=== PATIENT | male | born 1945 | race Hispanic/Latino ===

== ENCOUNTER 2017-01-17 07:22 | Day surgery (SDC) | payer MEDICARE, OTHER ==
[2017-01-13 10:25] VITALS: BMI 25.1
[2017-01-17] MEDS ORDERED: Lidocaine 2% Inj (20ml) ONE (09:57)
[2017-01-17] MEDS ORDERED: Heparin 0 ML IV ONE (09:57)
--- NOTE | 2017-01-17 11:17 | CARD ---
APPROVED REPORT HISTORY The Patient is a 71 year-old male with a history of Hx of bradycardia and near syncope, HTN PROCEDURES Insertion of Loop recorder Reveal LINQ INDICATIONS Bradicardia Syncope IMPLANTED DEVICES Medtronic, Reveal LINQ OPERATIVE NOTE The patient was brought to the Cardiac Catheterization Laboratory in a fasting state and was prepped and draped in a sterile manner. 2% lidocaine was given 1.5 cm lateral to mid stenal line at 4 th ICS, A small incision made with BP # 11 and asmall poacket created and then Linq was injected and puncture site was closed with Drma ricardo COMPLICATIONS The patient tolerated the procedure well and there were no complications associated with the procedure. CONCLUSION Successful Implantation of Loop recorder, Medtronic reveal LINQ, arrangement has been made for wireless transtelephonic continous recording and also pt was give education for event recordings. Cc; Dr. torres.
[2017-01-17 11:19] VITALS: BP 148/87; PULSE 61; RESP 20; TEMP 98.3; O2SAT 97
== END 2017-01-17 12:00 | disposition home or self-care (01) ==
LOC: SDS 07:22
PROVIDERS: ATTEND Internal Medicine Cardiovascular Disease
DX: R00.1 Bradycardia, unspecified (principal); I10 Essential (primary) hypertension; R55 Syncope and collapse
CPT/HCPCS: 33282; C1764

== ENCOUNTER 2017-12-23 12:06 | Observation (INO) | payer MEDICARE, OTHER ==
[2017-12-23 12:14] VITALS: BMI 25.5
[2017-12-23 13:23] LABS: BASO # 0.02 K/mm3 (0.0-2.0); BASO % 0.3 % (0.0-3.0); EOS # 0.1 (0.0-0.7); EOS % 1.6 % (1.5-5.0); GRAN # 4.45 (1.4-6.5); GRAN % 73.2 % (50.0-68.0); HEMOGLOBIN 14.9 g/dL (14.0-18.0); MEAN CELL VOLUME 89.9 fl (80.0-105.0); MEAN CORPUSCULAR HEMOGLOBIN 31.2 pg (25.0-35.0); MEAN CORPUSCULAR HGB CONC 34.7 g/dl (31.0-37.0); MEAN PLATELET VOLUME 10.5 fl (7.0-11.0); MONO # 0.5 (0.1-0.6); MONO % 8.9 % (1.0-6.0); RBC 4.77 10^6/uL (3.5-6.1); RED CELL DISTRIBUTION WIDTH 13.5 % (11.5-14.5); WHITE BLOOD COUNT 6.1 10^3/ul (4.5-11.0)
--- NOTE | 2017-12-23 13:32 | ED PDOC ---
Arrival/HPI - General Historian: Patient - History of Present Illness Time/Duration: > month Symptom Onset: Gradual Symptom Course: Unchanged Context: Sitting - General Chief Complaint: Medical Clearance Time Seen by Provider: 12/23/17 12:08 - History of Present Illness Narrative History of Present Illness (Text): 12/23/17 13:29 Patient is a 72 yo M with PMH of CHF, HTN, alzheimers presents to ED due to long period of asystole found on loop recorder. Patient states he has been on a loop recorder due to episodes of near syncope, diaphoresis, and bradycardia. It was found that on November 29 patient had an extended period of asystole on the loop recorder. Patient was instructed by his chief of police to proceed immediately to the ED for admission and pacemaker placement today. Patient states that he is symptomatic about once a month. Currently, patient denies CP, palpitations, diaphoresis, SOB, n/v/d, abdominal pain, fever, chills, BROOKS, or dizziness. PMD: Lilo Cardio: Leland Santana) Past Medical History - Provider Review Nursing Documentation Reviewed: Yes - Infectious Disease Hx of Infectious Diseases: None - Tetanus Immunization Tetanus Immunization: Unknown - Cardiac Hx Hypertension: Yes Hx Pacemaker: No Other/Comment: + loop recorder. bradycardia - Pulmonary Hx Respiratory Disorders: No - Neurological Hx Alzheimer's Disease: Yes Hx Paralysis: No - HEENT Hx HEENT Disorder: No - Renal Hx Renal Disorder: No - Endocrine/Metabolic Hx Endocrine Disorders: No - Hematological/Oncological Hx Blood Transfusions: No Hx Blood Transfusion Reaction: No - Integumentary Hx Dermatological Disorder: No - Musculoskeletal/Rheumatological Hx Musculoskeletal Disorders: No - Gastrointestinal Hx Gastritis: Yes Hx Gastroesophageal Reflux: Yes - Genitourinary/Gynecological Hx Genitourinary Disorders: No - Psychiatric Hx Emotional Abuse: No Hx Physical Abuse: No Hx Substance Use: No - Surgical History Hx Cardiac Catheterization: Yes - Anesthesia Hx Anesthesia: Yes Hx Anesthesia Reactions: No Hx Malignant Hyperthermia: No - Suicidal Assessment Feels Threatened In Home Enviroment: No Family/Social History - Physician Review Nursing Documentation Reviewed: Yes Family/Social History: No Known Family HX Smoking Status: Never Smoked Hx Alcohol Use: No Hx Substance Use: No Hx Substance Use Treatment: No Allergies/Home Meds Allergies/Adverse Reactions: Allergies TAPE Adverse Reaction (Mild, Uncoded 10/20/16 09:41) ITCHING Home Medications: Home Meds Medication Instructions Recorded Confirmed Valsartan [Diovan] 120 mg PO DAILY 10/14/16 01/17/17 clonazePAM [Klonopin] 1 mg PO HS PRN 10/20/16 01/17/17 Omeprazole Magnesium [Prilosec Otc] 40 mg PO DAILY 01/13/17 01/17/17 Aspirin [Aspirin EC] 1 tab PO DAILY 12/23/17 12/23/17 Ranitidine HCl [Zantac] 1 tab PO DAILY 12/23/17 12/23/17 Zaleplon [Sonata] 1 tab PO HS 12/23/17 12/23/17 Review of Systems - Physician Review All systems were reviewed & negative as marked: Yes (12 point ROS reviewed and is negative other than what is stated in HPI.) - Review of Systems Constitutional: Normal Eyes: Normal Physical Exam Vital Signs Reviewed: Yes Temperature: Afebrile Blood Pressure: Normal Pulse: Regular Respiratory Rate: Normal Appearance: Positive for: Non-Toxic Pain Distress: None Mental Status: Positive for: Alert and Oriented X 3 - Systems Exam Head: Present: Atraumatic, Normocephalic Pupils: Present: PERRL Extroacular Muscles: Present: EOMI Conjunctiva: Present: Normal Mouth: Present: Moist Mucous Membranes Neck: Present: Normal Range of Motion Respiratory/Chest: Present: Clear to Auscultation, Good Air Exchange. No: Respiratory Distress, Accessory Muscle Use Cardiovascular: Present: Regular Rate and Rhythm Abdomen: No: Tenderness, Distention, Peritoneal Signs Back: Present: Normal Inspection Upper Extremity: Present: Normal Inspection. No: Cyanosis, Edema Lower Extremity: Present: Normal Inspection. No: Edema Neurological: Present: GCS=15, CN II-XII Intact, Speech Normal Skin: Present: Warm, Dry, Normal Color. No: Rashes Psychiatric: Present: Alert, Oriented x 3, Normal Insight, Normal Concentration Vital Signs Temp Pulse Resp BP Pulse Ox 12/23/17 14:31 98.1 F 68 18 146/78 98 12/23/17 12:14 98.1 F 64 18 162/95 H 97 Medical Decision Making ED Course and Treatment: 12/23/17 13:33 72 yo M presents to ED due to asystole found on loop recorder. Plan: - CBC, CMP - Coags - Cardiac ISO - EKG - CXR - Type and screen - NPO Patient was discussed with Dr. Malloy, who will take patient to OR for pacemaker placement this afternoon. Patient was discussed with Dr. Nayg, who agrees with plan and accepts patient under her service. Patient admitted to telemetry. 12/23/17 14:19 CXR showed no active disease. EKG reviewed, showed rate of 63, NSR, LAD, RBBB. (Leland Kingston) - Lab Interpretations Lab Results: 12/23/17 13:18 12/23/17 13:18 Lab Results 12/23/17 13:18: Sodium 143, Potassium 4.3, Chloride 108 H, Carbon Dioxide 26, Anion Gap 14, BUN 20, Creatinine 1.1, Est GFR ( Amer) > 60, Est GFR (Non- Af Amer) > 60, Random Glucose 105, Calcium 8.9, Magnesium 2.2, Total Bilirubin 1.4 H, AST 18, ALT 20, Alkaline Phosphatase 67, Lactate Dehydrogenase 414, Total Creatine Kinase 154, Troponin I < 0.01, Total Protein 6.6, Albumin 3.8, Globulin 2.8, Albumin/Globulin Ratio 1.4 12/23/17 13:18: PT 12.2, INR 1.07, APTT 28.7 12/23/17 13:18: WBC 6.1, RBC 4.77, Hgb 14.9, Hct 42.9, MCV 89.9, MCH 31.2, MCHC 34.7, RDW 13.5, Plt Count 166, MPV 10.5, Gran % 73.2 H, Lymph % (Auto) 16.0 L, Lumpkin % (Auto) 8.9 H, Eos % (Auto) 1.6, Baso % (Auto) 0.3, Gran # 4.45, Lymph # ( Auto) 1.0 L, Lumpkin # (Auto) 0.5, Eos # (Auto) 0.1, Baso # (Auto) 0.02 - RAD Interpretation Radiology Orders: 12/23/17 12:49 CHEST PORTABLE [RAD] Stat Disposition/Present on Arrival - Present on Arrival Any Indicators Present on Arrival: No History of DVT/PE: No History of Uncontrolled Diabetes: No Urinary Catheter: No History of Decub. Ulcer: No History Surgical Site Infection Following: None - Disposition Have Diagnosis and Disposition been Completed?: Yes Disposition Time: 14:37 Patient Plan: Admission, Telemetry - Disposition Diagnosis: Cardiomyopathy Condition: STABLE Referrals: Vianney Nagy MD [Staff Provider] -
--- NOTE | 2017-12-23 13:34 | RAD ---
HISTORY: medical clearance COMPARISON: 07/03/2015 FINDINGS: LUNGS: No active pulmonary disease. PLEURA: No significant pleural effusion identified, no pneumothorax apparent. CARDIOVASCULAR: Normal. OSSEOUS STRUCTURES: No significant abnormalities. VISUALIZED UPPER ABDOMEN: Normal. OTHER FINDINGS: None. IMPRESSION: No active disease.
[2017-12-23 13:38] LABS: INR 1.07 (0.93-1.08); PARTIAL THROMBOPLASTIN TIME 28.7 Seconds (25.1-36.5); PROTHROMBIN TIME 12.2 SECONDS (9.4-12.5)
[2017-12-23 13:50] LABS: ALB/GLOB RATIO 1.4 (1.1-1.8); ALBUMIN 3.8 g/dL (3.0-4.8); ALT/SGPT 20 U/L (7-56); AST/SGOT 18 U/L (17-59); BLOOD UREA NITROGEN 20 mg/dL (7-21); CALCIUM 8.9 mg/dL (8.4-10.5); GFR AFRICAN-AMERICAN > 60; GFR NON-AFRICAN AMERICAN > 60
[2017-12-23 14:02] LABS: TROPONIN I < 0.01 ng/mL
--- NOTE | 2017-12-23 15:03 | CARD ---
APPROVED REPORT EKG Measurement Heart [id number] NE 182P29 [id number] <Conclusion> Normal sinus rhythm Left axis deviation Right bundle branch block Abnormal ECG
[2017-12-23] MEDS ORDERED: Midazolam 2 MG/2 ML VIAL ONE ×2 (15:26→17:07)
[2017-12-23] MEDS ORDERED: Lidocaine 2% Inj (20ml) ONE ×2 (15:26→15:46)
[2017-12-23] MEDS ORDERED: Iodixanol 320 MG/ML 100 ML BOTTLE IV ONE (15:27)
[2017-12-23] MEDS ORDERED: Sodium Chloride 0.9% 1,000 ML IV SCH (17:30)
--- NOTE | 2017-12-23 18:02 | CARD ---
APPROVED REPORT HISTORY The Patient is a 72 year-old male with a history of Syncope, HTN, S/p Multiple caths Non Obstructive CAD, and s/p Loop recoredr implantation. Today Loop recorder interogation revealed 16 seconds pause PROCEDURES Insertion Dual Chamber Pacemaker INDICATIONS SSS Sinus arrest with 16 secods documented pause in loop recorder Synncope CONSCIOUS SEDATION AGENTS Versed Fentanyl IMPLANTED DEVICES Pulse Generator Medtronic Adilene XT DR JORGENSEN SURESCAN. Ventricular Lead 5076-58...[id number]... MRI SAFE ... Medtronic Atrial lead 5076-52...[id number]....MRI Safe.... Medtronic OPERATIVE NOTE The patient was brought to the Cardiac Catheterization Laboratory in a fasting state and was prepped and draped in a sterile manner. The left subclavian region was infiltrated with 2% Lidocaine, subcutaneous anesthesia. A transverse incision was made in the left upper chest cavity. The subcutaneous pocket was formed via blunt dissection. Percutaneous venous access was achieved and an introducer sheath was inserted into the Lt Subclavian vein. Through the introducer sheaths, the atrial and ventricular lead wires were positioned in the right atrial apppendage and right ventricular apex respectively, utilizing fluorscopic guidance. The atrial and ventricular leads were advanced over the wires under fluoroscopic guidance and positioned in the right atria and right ventricle respectively. Capturing and sensing thresholds were verified. THE ATRIAL ELECTRODE PARAMETERS P WAVE 6.6 THRESHOLD0.4 RESISTANCE 539 THE VENTRICULAR ELECTRODE PARAMETERS R WAVE 4.5 THRESHOLD0.4 RESISTANCE 1310 The atrial and ventricular leads were then secured using silk2.0 sutures. The subcutaneous pocket was irrigated with Betadine.The atrial and ventricular leads were attached to the appropriate receptacles on the pulse generator and set screws firmly tightened to insure adequate contact and stability. The leads and pulse generator were placed into the subcutaneous pocket. Sharp and sponge counts were confirmed to be correct. At this time the pocket was closed subcutaneously with a 2.0 Vicryl and the skin was closed with a 4.0 Vicryl .The operative site was dressed in sterile fashion. The patient tolerated the procedure well and was transferred tot floor in stable condition. COMPLICATIONS The patient tolerated the procedure well and there were no complications associated with the procedure. CONCLUSION Successful implantation of DDDR , Pace maker MRI Safe ( pt can have MRI). CC; dr. Nagy
--- NOTE | 2017-12-23 18:04 | CPOSTOP ---
DATE: 12/23/2017 CARDIAC MISDRAW HAND PROCEDURE POSTPROCEDURE NOTE DICTATING PHYSICIAN: Celeste Malloy MD. RETAIL SERVICE TECHNICIAN: HOWARD Jaeger. TYPE OF ANESTHESIA: Moderate conscious sedation. Total 3 mg of Versed, 100 of fentanyl given periodically, started at 1 mg of Versed and 50 of fentanyl. PRE-PROCEDURE DIAGNOSES: Sick sinus syndrome, multiple long pauses, syncope. PROCEDURE PERFORMED: Implantation of permanent pacemaker. FINDINGS: Loop recorder shows 16 seconds pause. FINAL DIAGNOSES: Sick sinus syndrome, tachycardia bradycardia syndrome. POST PROCEDURE CONDITION: Post procedure, the patient's condition is stable. VASCULAR ACCESS SITE: Left subclavian vein. CLOSURE DEVICE: Closed with a stitch. TOTAL RADIATION DOSE: 8597.1. FLUORO TIME: 6.4 minutes. Celeste Malloy MD
[2017-12-23] MEDS ORDERED: Pneumococcal 23-Valent Vaccine IM ONE (20:02)
--- NOTE | 2017-12-24 01:10 | CON ---
DATE: 12/23/2017 CARDIOLOGY CONSULTATION REASON FOR CONSULTATION: Evaluation for pacemaker. 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 Redd. Complaining of dizziness and bradycardia at home. Multiple times . The patient ultimately went into the loop recorder implanted on 01/17/2017. Today, the patient was brought for loop recorder interrogation in the office that showed long pause. No QRS complex, only PPP, so the patient was sent to the ER for implantation of pacemaker and removal of the loop recorder. Though, the patient states that he had dizziness and near syncope, correlate with the patient's symptoms with the loop recorder finding. PAST MEDICAL HISTORY: Significant for hypertension, nonobstructive coronary artery disease, and early sign of forgetfulness. SOCIAL HISTORY: Denies any smoking. Denies any history of alcohol abuse. History of syncope as mentioned before. CURRENT MEDICATIONS: The patient is on Klonopin, ranitidine, aspirin, valsartan, and omeprazole. ALLERGIES: TAPE. REVIEW OF THE SYSTEMS: As per HPI. PHYSICAL EXAMINATION: VITAL SIGNS: Height of the patient is 5 feet 10 inches, weight of the patient 178 pounds, body mass index 25.5 kg/m2. Temperature afebrile, heart rate 68, blood pressure 142/78. HEENT: PERRLA. Extraocular muscles intact. NECK: Supple. No carotid bruit. No thyromegaly. CHEST: Clear to auscultation. HEART: S1 and S2 regular. ABDOMEN: Soft. EXTREMITIES: Clubbing and cyanosis negative. LABORATORY DATA: Blood workup as follows: WBC 6.1, hemoglobin 14.9, hematocrit 42.9, platelet count 166. Chemistry shows sodium 143, potassium 4.3, chloride 108, carbon dioxide 24, anion gap of 20, BUN 20, creatinine 1.1. Bilirubin 1.4. Troponin 0.01. EKG showed normal sinus, left axis deviation, right bundle-branch block, rate of 63. IMPRESSION: Sick sinus syndrome, tachybrady syndrome, multiple long pauses in the loop recorder. RECOMMENDATIONS: We will do pacemaker today and removal of loop recorder. Further recommendations depending upon the hospital course. We will follow with you. Thank you, Dr. Nagy, for providing us the opportunity in taking care of the patient, Gregg Mcleod. Celeste Malloy MD
[2017-12-24 05:50] VITALS: O2SAT 95
[2017-12-24 07:19] LABS: LDL CHOLESTEROL 103 mg/dL (0-129)
[2017-12-24 07:24] LABS: BASO # 0.02 K/mm3 (0.0-2.0); BASO % 0.2 % (0.0-3.0); EOS # 0.2 (0.0-0.7); EOS % 1.9 % (1.5-5.0); GRAN # 6.15 (1.4-6.5); GRAN % 74.8 % (50.0-68.0); HEMOGLOBIN 13.9 g/dL (14.0-18.0); LYMPH # 1.1 (1.2-3.4); LYMPH % 13.5 % (22.0-35.0); MEAN CORPUSCULAR HEMOGLOBIN 30.5 pg (25.0-35.0); MEAN CORPUSCULAR HGB CONC 33.5 g/dl (31.0-37.0); MEAN PLATELET VOLUME 10.7 fl (7.0-11.0); MONO # 0.8 (0.1-0.6); MONO % 9.6 % (1.0-6.0); RBC 4.56 10^6/uL (3.5-6.1); RED CELL DISTRIBUTION WIDTH 13.6 % (11.5-14.5); WHITE BLOOD COUNT 8.2 10^3/ul (4.5-11.0)
[2017-12-24 07:26] LABS: ALB/GLOB RATIO 1.3 (1.1-1.8); ALBUMIN 3.5 g/dL (3.0-4.8); ALT/SGPT 24 U/L (7-56); AST/SGOT 23 U/L (17-59); BLOOD UREA NITROGEN 20 mg/dL (7-21); CALCIUM 8.6 mg/dL (8.4-10.5); GFR AFRICAN-AMERICAN > 60; GFR NON-AFRICAN AMERICAN 60; HDL CHOLESTEROL 36 mg/dL (29-60)
[2017-12-24] MEDS ORDERED: Pantoprazole 40 mg EC Tab PO SCH (07:30)
[2017-12-24] MEDS ORDERED: Aspirin 325 mg EC Tablets PO SCH (10:00)
[2017-12-24] MEDS ORDERED: Non Formulary Medication (Ranitidine Hcl [Zantac] 1 TAB) PO SCH (10:00)
--- NOTE | 2017-12-24 10:53 | RAD ---
HISTORY: R/o Pneumothorax, STAT COMPARISON: Comparison chest 12/23/2017 FINDINGS: LUNGS: Mild bibasilar atelectasis. PLEURA: No significant pleural effusion identified, no pneumothorax apparent. CARDIOVASCULAR: Cardiac silhouette stable. No change multi lead pacemaker/defibrillator OSSEOUS STRUCTURES: No significant abnormalities. VISUALIZED UPPER ABDOMEN: Normal. OTHER FINDINGS: None. IMPRESSION: Mild bibasilar atelectasis No definitive pneumothorax. The the
--- NOTE | 2017-12-24 10:55 | RAD ---
HISTORY: S/p PPM r/o pneumothorax COMPARISON: No prior. TECHNIQUE: Chest PA and lateral FINDINGS: LUNGS: Poor inspiration with low lung volumes, crowded bronchovascular markings and mild bibasilar atelectasis. PLEURA: No significant pleural effusion identified. No pneumothorax apparent. CARDIOVASCULAR: Normal. OSSEOUS STRUCTURES: Mild multilevel chronic appearing anterior wedge deformities. In addition, there is a chronic appearing superior endplate deformity of what appears to be the L1 segment VISUALIZED UPPER ABDOMEN: Normal. OTHER FINDINGS: None. IMPRESSION: Poor inspiration with low lung volumes, crowded bronchovascular markings and mild bibasilar atelectasis.
--- NOTE | 2017-12-24 11:49 | CARD ---
APPROVED REPORT EKG Measurement Heart [id number] MO 120P-20 [id number] <Conclusion> Electronic atrial pacemaker underlying NSR
--- NOTE | 2017-12-24 11:53 | CARD ---
APPROVED REPORT EKG Measurement Heart [id number] MD 190P40 [id number] <Conclusion> Normal sinus rhythm Right bundle branch block Left anterior fascicular block Bifascicular block Abnormal ECG
--- NOTE | 2017-12-24 12:10 | PN ---
DATE: 12/24/2017 REASON FOR THE CONSULTATION AND FOLLOWUP: Long pause on loop recorder, status post permanent pacemaker with removal of the loop recorder. SUBJECTIVE: The patient denies any chest pain, shortness of breath or any palpitations. OBJECTIVE: GENERAL: Not in apparent distress. Left arm in sling. VITAL SIGNS: Temperature afebrile, heart rate 73, blood pressure 120/74. HEENT: PERRLA. Extraocular muscles intact. NECK: Supple. No carotid bruit or thyromegaly. CHEST: Clear to auscultation. HEART: S1, S2 regular. ABDOMEN: Soft. EXTREMITIES: Clubbing and cyanosis negative. LABORATORY DATA: Blood workup as follows: WBC 8.3, hemoglobin , hematocrit 41.5, platelet count 147. Chemistry shows sodium 140, potassium 4.7, chloride 105, carbon dioxide 29, anion gap of 13, BUN 20, creatinine 1.2, bilirubin 2.2, TSH 1.02, triglycerides 71, LDL 103, total cholesterol 158, HDL is 36. IMPRESSION: Sick sinus syndrome, tachybrady syndrome, bradycardia, essentially long pauses, sinus arrest, status post permanent pacemaker, status post removal of the pacemaker. Chest x-ray consistent with no pneumothorax, hyperbilirubinemia. RECOMMENDATIONS: Resume medication, discharge home. Continue Keflex at 250 mg for 5 days, continue baby aspirin, continue losartan. Once the patient is seen by Dr. Nagy, the patient will be okayed to be discharged home. Follow up SMA-7. Follow up liver function by Dr. Nagy and follow up by me in two weeks. Celeste Malloy MD
--- NOTE | 2017-12-24 13:40 | DS ---
HISTORY OF PRESENT ILLNESS: The patient is 72 years old, who was admitted yesterday, after which he was found to have long pause of 15 seconds on his loop recorder. He was directed by Dr. Malloy to be admitted, underwent pacemaker placement. Seems to be doing well. No nausea or vomiting. No diarrhea. Complained of soreness to the surgical site. PHYSICAL EXAMINATION: VITAL SIGNS: He is afebrile, pulse 73, respirations 20, blood pressure 154/90. LUNGS: Bilateral fair airflow. No rhonchi or crackle. HEART: S1 and S2 audible. ABDOMEN: Soft. Nontender. No rebound. No guarding. NEUROLOGICAL: He is awake, alert, oriented, communicative. SKIN: His pacemaker site seems healthy. No bruise. No active bleeding. LABORATORY EXAM: WBC is 8.2, hemoglobin 13.9, hematocrit 41.5, platelet of 147. PT 12.2, INR 1.07. Chemistry: Sodium 142, potassium 4.7, chloride 105, CO2 of 29, BUN 20, creatinine 1.2, blood sugar of 92. LFTs are within normal limit. Total bilirubin is 2.2. ASSESSMENT: 1. Symptomatic bradycardia and episode of syncope. 2. Status post pacemaker placement. 3. Anxiety disorder. 4. Hypertension. 5. Hyperlipidemia. PLAN: The patient is currently stable. He will be discharged today on Keflex 250 t.i.d. He will resume his medications including Klonopin, famotidine, Protonix and he will follow up in the office in a week. Vianney Nagy MD
[2017-12-24 15:01] VITALS: BP 156/97; PULSE 78; RESP 18; TEMP 97.8
--- NOTE | 2017-12-26 07:52 | HP ---
HISTORY OF PRESENT ILLNESS: The patient is 72 years old, known to me from office practice. He has been having intermittent bradycardia. He has been having multiple syncope attack in a couple of months, so he was evaluated by Dr. Malloy. The patient has loop recorder and Dr. Malloy was notified about his long pause and bradycardia, so he was contacted and was advised to come to emergency room. Does complain of feeling dizzy at times. Complained of feeling extremely tired. Denies any fever, chills. No nausea or vomiting. No diarrhea. PAST MEDICAL HISTORY: Significant for, 1. Anxiety disorder. 2. Hypertension. 3. Gastritis. 4. Insomnia. ALLERGY: HE IS ALLERGIC TO TAPE. MEDICATIONS AT HOME: He is on clonazepam 1 mg at bedtime. He is on Zantac 150 daily; aspirin 81 daily; Sonata 1 tablet daily; Diovan 120 mg daily, he takes one and a half pill of 80 mg and Prilosec 40 mg daily. REVIEW OF SYSTEMS: Significant for feeling weak and dizzy at times. SOCIAL HISTORY: He is single. Lives by himself with one of the family members who lives upstairs to him. He has never smoked. He is a retired mental health nurse. PHYSICAL EXAMINATION: GENERAL: He is awake, alert, oriented, communicative. VITAL SIGNS: He is afebrile, pulse 60, respirations 18, blood pressure 146/78. LUNGS: Bilateral good airflow. No rhonchi or crackle. HEART: S1 and S2 audible. ABDOMEN: Soft. Nontender. No rebound. No guarding. NEUROLOGICAL: The patient is awake, alert, oriented, communicative. LABORATORY EXAM: WBC is 6.1, hemoglobin 14, hematocrit 42, platelet 166. PT 12.2, INR 1.07, PTT 28.7. Chemistry: Sodium 143, potassium 4.3, chloride 108, CO2 of 26, BUN 20, creatinine 1.1, blood sugar of 105. Electrolytes are within normal limit. Total bili 1.4. Troponin is 0.01. X-ray chest is negative. ASSESSMENT: 1. Symptomatic bradycardia. 2. Intermittently dizzy. 3. Hypertension. 4. Hyperlipidemia. 5. Anxiety disorder. PLAN: We will restart the patient on his usual medication. We will do cardiac monitoring. He will be evaluated for possible pacemaker placement and we will discuss with Dr. Malloy. Vianney Nagy MD [facility] # [id number]
--- NOTE | 2017-12-26 08:47 | CARDCATH ---
PROCEDURE DATE: 12/23/2017 BRIEF CLINICAL HISTORY: This is a 72-year-old male with hypertension, history of syncope, status post loop recorder implanted this morning. Loop recorder interrogation revealed patient has a 16-second pause corresponded with syncope; so patient on emergent basis admitted for pacemaker implantation and removal of loop recorder. PROCEDURES: 1. Implantation of permanent pacemaker, please see separate dictation. 2. Removal of loop recorder. TECHNIQUE: Under fluoroscopy, the loop recorder was found and marked with the Madison forceps and 2% lidocaine was given on the skin and a small incision was made, and then loop recorder was removed with forceps, and after this, puncture site was closed with 4-0 Vicryl and the Dermabond applied. Patient tolerated the procedure well and returned to the floor in stable condition. Celeste Malloy MD
== END 2017-12-24 12:30 | disposition home or self-care (01) ==
LOC: ED 12:06 → ERH 13:21 → 2RSO 18:21
PROVIDERS: ADMIT Internal Medicine; ATTEND Internal Medicine
DX: I49.5 Sick sinus syndrome (principal); I46.9 Cardiac arrest, cause unspecified; I45.5 Other specified heart block; I11.0 Hypertensive heart disease with heart failure; I50.9 Heart failure, unspecified; I42.9 Cardiomyopathy, unspecified; I25.10 Atherosclerotic heart disease of native coronary artery without angina pectoris; G30.9 Alzheimer's disease, unspecified; F02.80 Dementia in other diseases classified elsewhere, unspecified severity, without behavioral disturbance, psychotic disturbance, mood disturbance, and anxiety; F41.9 Anxiety disorder, unspecified; E78.5 Hyperlipidemia, unspecified; K21.9 Gastro-esophageal reflux disease without esophagitis; Z79.82 Long term (current) use of aspirin
CPT/HCPCS: 33208; 33284; 36415; 71045; 71046; 80053; 80061; 82550; 83036; 83615; 83735; 84100; 84443; 84484; 85025; 85610; 85730; 86850; 86900; 93005; 99152; 99153; 99283; C1779; C1785; C1898; G0378; J0690; J2250; J3010; J7030

== ENCOUNTER 2018-06-19 07:05 | Emergency (ER) | payer MEDICARE ==
[2018-06-19 07:05] VITALS: BMI 25.5
[2018-06-19 07:23] VITALS: RESP 18
--- NOTE | 2018-06-19 08:12 | ED PDOC ---
Arrival/HPI - General Chief Complaint: GI Problem Time Seen by Provider: 06/19/18 07:29 Historian: Patient - History of Present Illness Narrative History of Present Illness (Text): 06/19/18 08:10 A 72 year old male, whose past medical history includes Alzheimer's, C. Diff, GERD, hypertension, [place], MCI, CAD, pacemaker, presents to the emergency department complaining of constipation and "waking up in fecal matter." Patient reports he had constipation for 3 days, and yesterday/today, patient woke up in fecal matter after taking multiple medications for constipation. States he initially did not get any relief, so he performed a self disimpaction for what he says was fecal impaction. Notes stool was "as hard as a rock." Mentions if he takes too much laxative, he results in not feeling well. Denies any intake of any antibiotics. Patient notes also experiencing chills and that his abdomen feels sore, however denies any fever, chest pain, shortness of breath, vomiting, dysuria, cough, or any other complaints at this time. PMD: Dr. Nagy Past Medical History - Provider Review Nursing Documentation Reviewed: Yes - Infectious Disease Hx of Infectious Diseases: None - Tetanus Immunization Tetanus Immunization: Unknown - Cardiac Hx Cardiac Disorders: Yes (cardiac cath x2,) Hx Pacemaker: No - Pulmonary Hx Respiratory Disorders: No - Neurological Hx Neurological Disorder: No - HEENT Hx HEENT Disorder: No - Renal Hx Renal Disorder: No - Endocrine/Metabolic Hx Endocrine Disorders: No - Hematological/Oncological Hx Blood Disorders: No - Integumentary Hx Dermatological Disorder: No - Musculoskeletal/Rheumatological Hx Musculoskeletal Disorders: No Hx Falls: No - Gastrointestinal Hx Gastroesophageal Reflux: Yes - Genitourinary/Gynecological Hx Genitourinary Disorders: No - Psychiatric Hx Emotional Abuse: No Hx Physical Abuse: No Hx Substance Use: No - Surgical History Other/Comment: Pacemaker - Anesthesia Hx Anesthesia: Yes Hx Anesthesia Reactions: No Hx Malignant Hyperthermia: No - Suicidal Assessment Feels Threatened In Home Enviroment: No Family/Social History - Physician Review Nursing Documentation Reviewed: Yes Family/Social History: No Known Family HX Smoking Status: Never Smoked Hx Alcohol Use: No Hx Substance Use: No Hx Substance Use Treatment: No Allergies/Home Meds Allergies/Adverse Reactions: Allergies TAPE Adverse Reaction (Mild, Uncoded 06/19/18 07:23) ITCHING Home Medications: Home Meds Medication Instructions Recorded Confirmed RX: clonazePAM [Klonopin] 0.5 mg PO HS PRN 10/20/16 06/19/18 RX: Omeprazole Magnesium [Prilosec 40 mg PO DAILY 01/13/17 06/19/18 Otc] RX: Aspirin [Aspirin EC] 1 tab PO DAILY 12/23/17 06/19/18 Ranitidine HCl [Zantac] 1 tab PO DAILY 12/23/17 06/19/18 Cholecalciferol [Vitamin D 1000 IU] 1,000 intlu PO QWK 06/19/18 06/19/18 Docusate [Colace] 100 mg PO PRN PRN 06/19/18 06/19/18 Losartan [Cozaar] 100 mg PO DAILY 06/19/18 06/19/18 Metoprolol Wilson/Hydrochlorothiaz 50 mg PO DAILY 06/19/18 06/19/18 [Metoprolol ER-Hctz 50-12.5 mg] Polyethylene Glycol 3350 [Miralax] 17 gm PO PRN PRN 06/19/18 06/19/18 Review of Systems - Physician Review All systems were reviewed & negative as marked: Yes - Review of Systems Constitutional: absent: Fevers, Night Sweats Respiratory: absent: SOB, Cough Cardiovascular: absent: Chest Pain Gastrointestinal: Constipation. absent: Abdominal Pain (states abdomen feels sore), Vomiting Genitourinary Male: absent: Dysuria Physical Exam - Physical Exam Narrative Physical Exam (Text): PE: Gen: NAD, cooperative, well appearing, non-toxic. Head: NCAT. HEENT: EYES: PERRL, EOMI, conjunctiva clear, EARS: TMs clear MOUTH: moist MM, posterior pharynx without erythema or exudate, uvula midline. CV: (+) S1S2, RRR, no M/G/R LUNGS: CTA B/L, No W/R/R, good air movement Abd: Soft, NTTP, no guarding, rebound or rigidity. Neuro: AAO x 3, GCS 15, CN 2-12 intact, motor and sensory grossly intact, 5/5 muscle strength B/L UE's and LE's. ext: no cyanosis or edema Vital Signs Reviewed: Yes Vital Signs Temp Pulse Resp BP Pulse Ox 06/19/18 07:21 98.4 F 62 18 163/83 H 97 Temperature: Afebrile Blood Pressure: Hypertensive Pulse: Regular Respiratory Rate: Normal Appearance: Positive for: Well-Appearing, Non-Toxic, Comfortable Pain Distress: None Mental Status: Positive for: Alert and Oriented X 3 Medical Decision Making ED Course and Treatment: 06/19/18 08:14 Impression: 72 year old male with constipation and "waking up covered in fecal matter." Plan: -- Abdominal X-Ray -- Labs -- Urinalysis -- Reassess and disposition Progress Notes: 06/19/2017 09:28 Abdominal X-Ray IMPRESSION: Nonobstructive bowel gas pattern. No free intraperitoneal gas collection. Dictator: Evaristo Farr MD Patient was able to provide a stool sample which was sent to lab for stool studies. 06/19/18 10:53 Labs and xray unremarkable and d/w patient. Case discussed with Dr. Nagy, who will follow-up with stool studies, and requests to have patient follow-up with her at her office. Patient is agreeable w/POC, received verbal and written d/c instructions and verbalized understanding. - Lab Interpretations I have reviewed the lab results: Yes - Scribe Statement The provider has reviewed the documentation as recorded by the Michelle Kaye Provider Scribe Attestation: All medical record entries made by the Scribe were at my direction and person ally dictated by me. I have reviewed the chart and agree that the record accurately reflects my personal performance of the history, physical exam, medical decision making, and the department course for this patient. I have also personally directed, reviewed, and agree with the discharge instructions and disposition. Disposition/Present on Arrival - Present on Arrival Any Indicators Present on Arrival: No History of DVT/PE: No History of Uncontrolled Diabetes: No Urinary Catheter: No History of Decub. Ulcer: No History Surgical Site Infection Following: None - Disposition Have Diagnosis and Disposition been Completed?: Yes Diagnosis: Diarrhea, Abdominal pain Disposition: HOME/ ROUTINE Disposition Time: 10:58 Patient Plan: Discharge Condition: GOOD Discharge Instructions (ExitCare): Diarrhea in Adolescents and Adults, Acute Abdomen (Belly Pain) Additional Instructions: DELVIS GOMEZ, thank you for letting us take care of you today. Your provider was Jinny Perry MD and you were treated for ACUTE ABD PAIN. The emergency medical care you received today was directed at your acute symptoms. If you were prescribed any medication, please fill it and take as directed. It may take several days for your symptoms to resolve. Return to the Emergency Department if your symptoms worsen, do not improve, or if you have any other problems. Please contact your doctor for a follow up appointment in 1-2 days. Bring any paperwork you were given at discharge with you along with any medications you are taking to your follow up visit. Our treatment cannot replace ongoing medical care by a primary care provider outside of the emergency department. Thank you for allowing the [facility] team to be part of your care today. Your stool culture will take several days for the results, if any change in treatment is needed we will contact you. Referrals: Vianney Nagy MD [Primary Care Provider] - Follow up with primary Forms: [employer] (French)
[2018-06-19 08:48] LABS: BASO # 0.01 K/mm3 (0.0-2.0); BASO % 0.1 % (0.0-3.0); EOS # 0.1 (0.0-0.7); EOS % 1.5 % (1.5-5.0); GRAN # 6.23 (1.4-6.5); GRAN % 78.6 % (50.0-68.0); HEMOGLOBIN 14.2 g/dL (14.0-18.0); MEAN CELL VOLUME 92.1 fl (80.0-105.0); MEAN CORPUSCULAR HEMOGLOBIN 31.3 pg (25.0-35.0); MEAN CORPUSCULAR HGB CONC 34.1 g/dl (31.0-37.0); MEAN PLATELET VOLUME 10.8 fl (7.0-11.0); MONO # 0.6 (0.1-0.6); MONO % 7.8 % (1.0-6.0); RBC 4.53 10^6/uL (3.5-6.1); RED CELL DISTRIBUTION WIDTH 13.3 % (11.5-14.5); WHITE BLOOD COUNT 7.9 10^3/uL (4.5-11.0)
[2018-06-19 08:59] LABS: ALB/GLOB RATIO 1.2 (1.1-1.8); ALBUMIN 3.6 g/dL (3.0-4.8); ALT/SGPT 25 U/L (7-56); AST/SGOT 20 U/L (17-59); BLOOD UREA NITROGEN 17 mg/dL (7-21); CALCIUM 8.9 mg/dL (8.4-10.5); GFR NON-AFRICAN AMERICAN 60; LIPASE 44 U/L (23-300)
--- NOTE | 2018-06-19 09:32 | RAD ---
Date of service: 06/19/2018 HISTORY: abd pain COMPARISON: None available. FINDINGS: BOWEL: Nonobstructive bowel gas pattern is appreciated with limited gas identified within small bowel loops and a moderate amount scattered throughout the colon. No free intra peritoneal gas collection identified. The bilateral psoas margins are sharp and well maintained. No abnormal intra-abdominal calcifications. BONES: Normal. OTHER FINDINGS: None. IMPRESSION: Nonobstructive bowel gas pattern. No free intra peritoneal gas collection.
[2018-06-19 10:22] LABS: URINE BILIRUBIN NEGATIVE (NEGATIVE); URINE BLOOD NEGATIVE (NEGATIVE); URINE GLUCOSE (UA) NEGATIVE (NEGATIVE); URINE LEUKOCYTE ESTERASE NEGATIVE Leu/uL (NEGATIVE); URINE PROTEIN NEGATIVE mg/dL (<30 mg/dL); URINE UROBILINOGEN 0.2 E.U./dL (<1 E.U./dL)
[2018-06-19 10:23] LABS: URINE APPEARANCE SL CLOUDY (CLEAR); URINE COLOR YELLOW (YELLOW)
[2018-06-19 11:19] VITALS: BP 128/74; PULSE 60; TEMP 98.3; O2SAT 98
--- NOTE | 2018-06-20 10:59 | CARD ---
APPROVED REPORT Date of service: 06/19/2018 EKG Measurement Heart [id number] <Conclusion> AV paced and PVCs New since ECG 12/23/17
== END 2018-06-19 11:12 | disposition home or self-care (01) ==
LOC: ED 07:05
DX: R10.9 Unspecified abdominal pain (principal); R19.7 Diarrhea, unspecified; I25.10 Atherosclerotic heart disease of native coronary artery without angina pectoris; I10 Essential (primary) hypertension; I25.2 Old myocardial infarction; G30.9 Alzheimer's disease, unspecified

== ENCOUNTER 2018-08-02 06:18 | Outpatient (CLI) | payer MEDICARE, OTHER | END 2018-08-02 06:19 | disposition home or self-care (01) | LOC: CARDIO 06:18 | DX: I10 Essential (primary) hypertension (principal); I50.31 Acute diastolic (congestive) heart failure; E78.5 Hyperlipidemia, unspecified; Z95.0 Presence of cardiac pacemaker; G30.9 Alzheimer's disease, unspecified; E78.00 Pure hypercholesterolemia, unspecified; I45.10 Unspecified right bundle-branch block; Z79.82 Long term (current) use of aspirin; Z79.899 Other long term (current) drug therapy ==